=== PATIENT | female | born 1955 | race Caucasian/White ===

== ENCOUNTER → 2018-06-19 08:57 | Outpatient (CLI) | payer OTHER, SELFPAY ==
[2018-06-19 10:22] LABS: Hematocrit 39.7 % (36-46); Hemoglobin 13.1 g/dL (12.0-16.0); Mean Corpuscular HGB Conc 33.1 % (30-36); Mean Corpuscular Hemoglobin 31.1 PG (26-34); Mean Corpuscular Volume 93.9 fL (80-100); Platelet Count 225 X10^3/uL (150-400); Red Blood Cell Count 4.22 X10^6/uL (4.0-5.2); Red Cell Distribution Width 15.3 % (11.6-14.8); White Blood Cell Count 4.3 X10^3/uL (4.5-11.0)
[2018-06-19 10:54] LABS: Alanine Aminotransferase 28 IU/L (9-52); Albumin 4.7 g/dL (3.5-5.0); Albumin Globulin Ratio 1.6 (1.0-2.8); Alkaline Phosphatase 44 U/L (38-126); Aspartate Aminotransferase 26 IU/L (14-36); BUN Creatinine Ratio 22.9 (6-22); Bilirubin Total 0.7 mg/dL (0.2-1.3); Blood Urea Nitrogen 16 mg/dL (7-17); Calcium 9.7 mg/dL (8.4-10.2); Carbon Dioxide 30 mmol/L (22-32); Chloride 104 mmol/L (98-107); Cholesterol 266 mg/dL (140-199); Estimated Glomerular Filt Rate > 60.0 mL/min (>60); Glucose 95 mg/dL (80-110); HDL Cholesterol 72 mg/dL (40-60); HEMOLYSIS < 15 (0-50); LDL Cholesterol Calculated 170 mg/dL (<100); Potassium 4.2 mmol/L (3.4-5.1); Sodium 144 mmol/L (137-145); Total Protein 7.7 g/dL (6.3-8.2); Triglycerides 119 mg/dL (35-150)
[2018-06-19 11:04] LABS: Vitamin D 25 Hydroxy (D3) 33.5 ng/mL (30.0-100.0)
[2018-06-19 11:07] LABS: Free T3, Triiodothyronine Free 3.21 pg/mL (2.77-5.27); Free T4, Direct Thyroxine 0.95 ng/dL (0.78-2.19)
[2018-06-19 13:04] LABS: Neutrophils Absolute Manual 1720 /uL (3000-5900); Total Cells Counted 100
[2018-06-19 13:05] LABS: RBC Morphology Normal Morphology
[2018-06-19 13:06] LABS: Thyroid Stimulating Hormone 7.39 uIU/mL (0.47-4.68)
== END ==
PROVIDERS: Visit Provider Family Medicine
DX: Z00.00 Encounter for general adult medical examination without abnormal findings (principal)
CPT/HCPCS: 36415; 80053; 80061; 82306; 83735; 84439; 84443; 84481; 85025

== ENCOUNTER → 2018-07-09 12:36 | Outpatient (CLI) | payer OTHER, SELFPAY ==
--- NOTE | 2018-07-09 | DI.ECHO.S_ITS ---
[facility] +---------+ : : [address] : : : : [id number] : : : : Phone: [phone] +---------+ Echocardiogram Report + + :Name: YOEL GOMEZ Study Date: 07/09/2018 Height: 65 in : :[facility] Weight: 120 lb : : Gender: Female BSA: 1.6 m2 : :: 1955 Age: 62 yrs BP: 102/66 mmHg: :Reason For Study: Osteopena : : Performed By: Aminata Ahumada : :Referring: GHAZALA ESPINOSA : + + Interpretation Summary Normal both left and right ventricle size and function. The ejection fraction is 60-65%. Mildly dilated left atrium. No valvular abnormality. Procedure: A two-dimensional transthoracic echocardiogram with color flow and Doppler was performed. The study quality was technically good. There is no prior echocardiogram noted for this patient. The patient was in normal sinus rhythm during the exam. Left Ventricle: The left ventricle is normal in size. There is normal left ventricular wall thickness. The ejection fraction is estimated to be 60-65%. There are no focal wall motion abnormalities. Diastolic parameters suggest probable normal left ventricular diastolic function and normal filling pressures. Right Ventricle: The right ventricle grossly appears normal in size with probable normal systolic function. Atria: The left atrium is mildly dilated. Right atrial size is normal. The interatrial septum is intact with no evidence for an atrial septal defect. Mitral Valve: The mitral valve leaflets appear borderline thickened, but open well. There is a flat closure plane of the the mitral valve leaflets. There is trace mitral regurgitation. Aortic Valve: The aortic valve is trileaflet. The aortic valve opens well. No aortic regurgitation is present. Tricuspid Valve: The tricuspid valve is normal in structure and function. There is trace tricuspid regurgitation. The right ventricular systolic pressure is estimated to be at least 23 mmHg based on an estimated right atrial pressure of 3 mm Hg. Pulmonic Valve: The pulmonic valve is normal in structure and function. There is a trace or physiologic amount of pulmonic regurgitation. Great Vessels: The aortic root is normal size. The dimensions of the ascending aorta are normal. The aortic arch is normal in size. The IVC is of normal diameter and collapses greater than 50% with a sniff. This suggests a low right atrial pressure of 3 mm Hg. Pericardium/ Pleura There is no pericardial effusion. There is no pleural effusion. MMode/2D Measurements & Calculations LVIDd: 4.7 cm Ao root diam: 3.4 cm LVIDs: 3.2 cm Aortic Jxn: 2.5 cm FS: 31.1 % asc Aorta Diam: 3.3 cm EPSS: 0.74 cm Ao Arch Diam (Prox Trans): 2.8 cm IVSd: 0.77 cm LVPWd: 0.75 cm LV murray. diameter/BSA (cm/m^2): 3.0 LV sys. diameter/BSA (cm/m^2): 2.0 LA dimension: 3.9 cm RA long axis: 4.7 cm LA A2 area: 22.2 cm2 RA area: 11.3 cm2 LA A4 area: 21.5 cm2 RA vol: 23.1 ml LA length (vol): 5.8 cm RA : 14.5 ml/m2 LA vol: 69.9 ml IVC diam: 1.3 cm LA vol index: 43.9 ml/m2 RVDd major: 5.7 cm RVD1 (basal): 3.2 cm RVD2 (mid): 2.7 cm Doppler Measurements & Calculations Ao V2 max: 118.9 cm/sec MV E max alessio: 68.5 cm/sec Ao V2 mean: 77.7 cm/sec MV A max alessio: 56.8 cm/sec Ao max P.7 mmHg MV E/A: 1.2 Ao mean P.8 mmHg Med Peak E' Alessio: 8.0 cm/sec Ao V2 VTI: 28.4 cm E/E' med: 8.6 Lat Peak E' Alessio: 10.2 cm/sec E/E' lat: 6.7 E/e' average: 7.6 MV dec time: 0.24 sec MV P1/2t: 71.0 msec TR max alessio: 223.1 cm/sec MV P1/2t max alessio: 68.2 cm/sec TR max P.9 mmHg MVA(P1/2t): 3.1 cm2 PA V2 max: 63.5 cm/sec PA V2 mean: 43.8 cm/sec PA mean P.87 mmHg PA Accel Time: 0.22 sec Electronically signed by: Luis Herring on Reading Physician:07/09/2018 03:07 PM
== END ==
PROVIDERS: PCP Family Medicine; Visit Provider Family Medicine
DX: M81.0 Age-related osteoporosis without current pathological fracture (principal)
CPT/HCPCS: 77080; 93306